=== PATIENT | male | born 1995 | race Caucasian/White ===

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

== ENCOUNTER 2020-12-02 08:28 | Emergency (ER) | payer OTHER ==
[2020-12-02 08:35] VITALS: BP 151/77; PULSE 81; TEMP 98.8; BMI 26.5
[2020-12-02] MEDS ORDERED: IBUPROFEN 400 MG TABLET (FP) PO ONE ×2 (10:50→11:02)
== END 2020-12-02 11:06 | disposition home or self-care (01) ==
LOC: JERFT 08:28 → JER 08:28 → JERFT 11:06
DX: J02.9 Acute pharyngitis, unspecified (principal)
CPT/HCPCS: 87880; 99283-25

== ENCOUNTER 2022-08-07 14:20 | Emergency (ER) | payer OTHER ==
[2022-08-07 14:37] VITALS: BP 111/62; PULSE 94; RESP 18; TEMP 98.3; BMI 26.7
[2022-08-07] MEDS ORDERED: DIPHTH,PERTUSS(ACELL),TET 0.5 ML DISP.SYRIN IM ONE ×2 (14:48→14:56)
[2022-08-07] MEDS ORDERED: CEPHALEXIN MONOHYDRATE 500 MG CAPSULE (UD) PO ONE (14:55)
[2022-08-07] MEDS ORDERED: CEPHALEXIN MONOHYDRATE 500 MG CAPSULE (UD) ONE (14:56)
== END 2022-08-07 15:29 | disposition home or self-care (01) ==
LOC: JERFT 14:20
PROC: 0HQFXZZ Repair Right Hand Skin, External Approach (ICD-10-PCS; principal; 2022-08-07)
PROC: 3E0234Z Introduction of Serum, Toxoid and Vaccine into Muscle, Percutaneous Approach (ICD-10-PCS; 2022-08-07)
DX: S61.310A Laceration without foreign body of right index finger with damage to nail, initial encounter (principal); S61.312A Laceration without foreign body of right middle finger with damage to nail, initial encounter; W27.4XXA Contact with kitchen utensil, initial encounter
CPT/HCPCS: 12001-25; 90471; 90715; 99283-25

== ENCOUNTER 2022-08-10 15:28 | Emergency (ER) | payer OTHER ==
[2022-08-10 15:41] VITALS: BP 129/65; PULSE 71; RESP 16; TEMP 98.9; BMI 26.7
== END 2022-08-10 17:16 | disposition home or self-care (01) ==
LOC: JERFT 15:28
DX: Z48.00 Encounter for change or removal of nonsurgical wound dressing (principal)
CPT/HCPCS: 99281-25

== ENCOUNTER 2025-01-02 09:20 | Day surgery (SDC) | payer OTHER ==
[2025-01-01 14:20] VITALS: BMI 27.3
[2025-01-02 12:48] VITALS: TEMP 97
[2025-01-02 12:52] VITALS: BP 141/62; PULSE 97; RESP 19
== END 2025-01-02 13:05 | disposition home or self-care (01) ==
LOC: FASU 09:20
PROVIDERS: ATTEND Internal Medicine Gastroenterology
PROC: 0DB98ZX Excision of Duodenum, Via Natural or Artificial Opening Endoscopic, Diagnostic (ICD-10-PCS; 2025-01-02)
PROC: 0DB78ZX Excision of Stomach, Pylorus, Via Natural or Artificial Opening Endoscopic, Diagnostic (ICD-10-PCS; 2025-01-02)
PROC: 0DB68ZX Excision of Stomach, Via Natural or Artificial Opening Endoscopic, Diagnostic (ICD-10-PCS; 2025-01-02)
PROC: 0DBL8ZX Excision of Transverse Colon, Via Natural or Artificial Opening Endoscopic, Diagnostic (ICD-10-PCS; principal; 2025-01-02 11:29)
DX: D12.3 Benign neoplasm of transverse colon (principal); K29.50 Unspecified chronic gastritis without bleeding; B96.81 Helicobacter pylori [H. pylori] as the cause of diseases classified elsewhere; K31.7 Polyp of stomach and duodenum
CPT/HCPCS: 88305-TC; 88341-TC; 88342-TC